=== PATIENT | female | born 1970 | race Caucasian/White ===

== ENCOUNTER → 2023-09-29 09:47 | Outpatient (REF) | payer BC, SELFPAY | LOC: HWWDC 09:47 | PROVIDERS: ATTENDING PHYSICIAN Nurse Practitioner Family; FAMILY PHYSICIAN Family Medicine | DX: Z12.31 Encounter for screening mammogram for malignant neoplasm of breast (principal) | CPT/HCPCS: 77063; 77067 ==

== ENCOUNTER → 2023-10-23 06:31 | Day surgery (SDC) | payer BC, SELFPAY | LOC: GI 06:31 | PROVIDERS: ATTENDING PHYSICIAN Internal Medicine Gastroenterology; FAMILY PHYSICIAN Family Medicine | DX: Z12.11 Encounter for screening for malignant neoplasm of colon (principal); K57.30 Diverticulosis of large intestine without perforation or abscess without bleeding; K64.8 Other hemorrhoids; K63.5 Polyp of colon | CPT/HCPCS: 45385 ==

== ENCOUNTER → 2024-01-06 17:29 | Outpatient (REF) | payer BC, SELFPAY ==
[2024-01-09 12:15] LABS: HPV, High Risk Not Detected; HPV, High Risk Source Anal
== END ==
LOC: CLAB 17:29
PROVIDERS: ATTENDING PHYSICIAN Physician Assistant
DX: B97.7 Papillomavirus as the cause of diseases classified elsewhere (principal)
CPT/HCPCS: 87624; 88112

== ENCOUNTER → 2024-03-14 13:09 | Outpatient (REF) | payer BC, SELFPAY | LOC: MRI 3T 13:09 | PROVIDERS: ATTENDING PHYSICIAN Obstetrics & Gynecology Gynecologic Oncology; FAMILY PHYSICIAN Family Medicine | DX: R87.619 Unspecified abnormal cytological findings in specimens from cervix uteri (principal); R87.810 Cervical high risk human papillomavirus (HPV) DNA test positive; N88.2 Stricture and stenosis of cervix uteri | CPT/HCPCS: 72197; A9575 ==

== ENCOUNTER 2024-04-05 06:51 | Day surgery (SDC) | payer BC, SELFPAY ==
--- NOTE | 2024-04-04 22:03 | W.CON.GYNONC ---
Chief Complaint
-
NA
History of Present Illness
This patient returns back to the follow�up. She is a 53�year�old �0�5�1 who was sent to us because of persistent abnormality
on Pap smear. Based on reports sent to us Pap smear dated September 25, 2023 showed atypical squamous cells of undetermined
significance, HPV was positive. Previous Pap smear July 23, 2022 shows HPV negative, low�grade squamous intraepithelial
lesion. Colposcopy had been performed, the entire squamous columnar junction was seen. And a biopsy had been done by primary
gynecology.
Also an anal Pap smear had been performed in December 2023 which was negative for intraepithelial lesion or malignancy.
In the interim since her last visit an MRI of the pelvis was ordered. Study shows an elongated uterus 5.6 x 3.9 x 3.4 cm, small
fibroids are present. Largest fibroid is posterior fundal measuring 2 cm. Endometrium is thin measuring 2.5 mm. Cervix is
approximately 5 cm in length, there is mild distention of endocervical canal up to 8.3 mm no focal masses identified. Ovaries
measure 1.4 x 2.4 cm on the right and 1.9 x 1.9 cm on the left. Adnexa are without any masses there is no free fluid.
Interval History
Patient returns back to the office today, she denies any new medical problems. She denies any vaginal bleeding. She remains on
transdermal estrogen with daily low�dose progesterone at bedtime
In the interim since her last visit an MRI of the pelvis was ordered. Study shows an elongated uterus 5.6 x 3.9 x 3.4 cm, small
fibroids are present. Largest fibroid is posterior fundal measuring 2 cm. Endometrium is thin measuring 2.5 mm. Cervix is
approximately 5 cm in length, there is mild distention of endocervical canal up to 8.3 mm no focal masses identified. Ovaries
measure 1.4 x 2.4 cm on the right and 1.9 x 1.9 cm on the left. Adnexa are without any masses there is no free fluid.
Medical History
Allergies
Allergies reflect when allergies were last updated in [employer].
NKA - No Known Allergies Allergy (Uncoded 03/29/24 12:41)
Unknown
Physical Exam
Physical Exam
Pelvic Examination:
External normal labia, urethra, anus.
Vagina: Normal mucosa.
Cervix: Difficult to visualize, cervical os is closed, appears to be pulled anteriorly and high, no discharge.
Uterus: normal size.
Adnexa: No pelvic mass.
RVE: no masses or nodularity
General: Well developed, well nourished patient. In no acute distress.
Neck: No thyromegaly. No cervical lymphadenopathy.
Lungs: Clear to auscultation. Good air movement bilaterally.
Cardiac: Regular rate. Regular rhythm. No murmurs appreciated.
Abdomen: Abdomen is soft. Non�tender to palpation. Non�distended.
Extremities: No edema.
Hematologic/Lymphatic: No palpable lymphadenopathy.
Musculoskeletal: Normal range of motion. Strength and Tone are normal.
Skin:Non�jaundiced. No petechia. No purpura.
Neurologic: Speech is fluent. Normal gait and station. Cranial nerves intact.
Results
-
[facility]
[address] [place] [address]
[phone]
Patient Name: FAHEEM FERNANDEZ
: 1970
Unit Number: [id number]
Age/Sex: 53/F
Patient
Location: MRI 3T
Order Provider: Fabián Bal MD
Exam Service Date: 03/14/24

Magnetic Resonance Imaging Rpt
SignedOrder #:[id number]
Exams: MR Pelvis W/o & With Contrast
Technique: Multiplanar multisequence pre- and post-IV contrast 3 T MRI examination of the pelvis.
INDICATION: Abnormal Pap smear.
COMPARISON: None.
FINDINGS:
UTERUS: Elongated, approximately 5.6 cm in length by 3.9 cm AP by 3.4 cm transverse. Numerous small fibroids are demonstrated. Largest fibroid is posterior fundal, representing an intramural fibroid measuring approximately 2 cm. Anterior fundal
intramural fibroid measures 1.3 cm. At least 5 additional intramural fibroids are demonstrated measuring 1 cm or less. There is a right para midline submucosal fibroid measuring 6 mm in the upper body/fundal region as well as multiple additional
small submucosal fibroids along the course of the endometrium, resulting in distortion of the endometrial signal. Along the anterior right upper body subserosal uterine margin, there is a small 1 cm cyst, without abnormal enhancement. Possible
cystic degenerated subserosal fibroid.
ENDOMETRIUM: Endometrium is thin, measuring up to 2.5 mm, though distorted secondary to numerous intramural and submucosal fibroids.
JUNCTIONAL ZONE: Relatively thin, measuring up to 2.5 mm where visualized.
CERVIX AND AND CERVICAL CANAL: The cervix is elongated, approximately 5 cm in length, with mild distention of the endocervical canal measuring up to 8.3 mm. No focal mass identified.
OVARIES:
Right ovary: Unremarkable, 1.4 x 1 x 2.4 cm.
Left ovary: Unremarkable, 1.9 x 0.9 x 1.9 cm.
ADNEXA: No mass.
PELVIC PERITONEAL CAVITY: Trace free fluid, likely physiologic.
PELVIC SIDEWALL AND INGUINAL REGIONS: No mass or adenopathy.
IMPRESSION:
The cervix is elongated, approximately 5 cm in length, with mild distention of the endocervical canal measuring up to 8.3 mm. No focal mass identified.
Multiple uterine fibroids, as described. Combination of intramural, submucosal, and subserosal fibroids. Thin endometrium, though distorted secondary to associated fibroids.
Unremarkable ovaries.
Trace free fluid, likely physiologic.
No pelvic adenopathy.
Electronically signed by Ronaldo Belcher MD, 03/14/2024 8:09 PM
Impression / Plan
-
There is no gross abnormalities on the MRI.
Clinical examination is difficult and the examination is difficult for the patient to tolerate in the office.
I recommended an exam under anesthesia colposcopy of vagina and cervix with biopsies of cervix and vagina possible LEEP
procedure. Patient is accepting of the recommendations. If there is persistent high�grade dysplasia she may be advised to undergo
definitive treatment with hysterectomy.
[2024-04-05] VITALS (7 sets, daily range): BP systolic 107–116; BP diastolic 67–72; BMI 26.2
[2024-04-05] MEDS: TYLENOL 1000 MG PO (09:40)
[2024-04-05] MEDS: NEURONTIN 300 MG PO (09:40)
[2024-04-05] MEDS: CELEBREX 200 MG PO (09:41)
[2024-04-05] MEDS: NORMOSOL-R/PLASMALYTE-A 1000 IV (09:51)
[2024-04-05] MEDS: HEPARIN 5000 UNITS SC (09:51)
--- NOTE | 2024-04-05 16:42 | OR.RPT ---
Operative Report
Operative Report
Date of procedure April 05, 2024
Preoperative diagnosis: Abnormal Pap smear, high risk HPV positive
Postop diagnosis: Pending final pathology
Procedure exam under anesthesia, colposcopy of cervix and vagina, LEEP procedure, endocervical curettage, multiple vaginal biopsies
Surgeon: Fabián Bal MD
Assist: Swati Magaña
Anesthesia: General LMA intubation
Complication: None
Estimated blood loss: 10 cc
Procedure in detail: This patient was brought to the operating room and placed in supine position. General anesthesia was administered, once LMA intubation was completed she was placed in lithotomy position using yellowfin stirrups. She was
prepped in vagina, perineum and upper thighs. The patient was draped. She received 2 g of Ancef for prophylaxis. External genitalia including anus urethral and vulvar unremarkable, vagina is without any gross lesions. The cervix is small and
appears somewhat flush with the apex of the vagina and more anteriorly displaced. Cervical os appears to be stenotic. I applied acetic acid 5% to vagina and soaked it for approximately 2 to 3 minutes next colposcopy was performed, there is
evidence of acetowhite epithelium involving right and posterior aspect of the vaginal fornix that extends to the exocervix. I was able to grasp the anterior lip of the cervix with single-tooth tenaculum. The cervical os was gently dilated and the
cervical canal was identified. A loop approximately 10 mm in size was used to excise the transformation zone this was submitted as LEEP procedure. Endocervical curettage was obtained above data and submitted separately. I obtained biopsies of the
vagina from right and left posterior fornix and mid posterior fornix, an additional biopsy was obtained from right anterior vaginal fornix, and then a biopsy was obtained from the margin of the LEEP along the posterior edge of exocervix/fornix. All
biopsy sites were cauterized with rollerball cautery. Monsel solution was applied to all sites. Good hemostasis was present. My general impression is that the patient probably has low-grade intraepithelial lesion involving vagina and exocervix.
I did not see any evidence of high-grade region, there was no evidence of abnormal vascularity and I was unable to see the transformation zone adequately hence the need for excisional biopsy and ECC. The patient was awakened extubated and returned
back to recovery room stable awake and extubated condition. Counts of laps instruments and needle was correct x 2. I was present and scrubbed for entire procedure as dictated above
== END 2024-04-05 13:15 | disposition home or self-care (01) ==
LOC: SDS 06:51
PROVIDERS: ATTENDING PHYSICIAN Obstetrics & Gynecology Gynecologic Oncology
DX: N89.0 Mild vaginal dysplasia (principal); D25.0 Submucous leiomyoma of uterus; D25.1 Intramural leiomyoma of uterus
CPT/HCPCS: 57522; 88305; 88307; 88342

== ENCOUNTER → 2025-03-10 07:38 | Outpatient (REF) | payer BC, SELFPAY | LOC: WDC 07:38 | PROVIDERS: ATTENDING PHYSICIAN Nurse Practitioner Family | DX: Z12.31 Encounter for screening mammogram for malignant neoplasm of breast (principal) | CPT/HCPCS: 77063; 77067 ==

== ENCOUNTER → 2025-03-15 14:36 | Outpatient (REF) | payer BC, SELFPAY | LOC: RCS 14:36 | PROVIDERS: ATTENDING PHYSICIAN Nurse Practitioner Primary Care | DX: Z13.6 Encounter for screening for cardiovascular disorders (principal); Z82.41 Family history of sudden cardiac death; Z82.49 Family history of ischemic heart disease and other diseases of the circulatory system; I49.3 Ventricular premature depolarization | CPT/HCPCS: 93017; 93350 ==